=== PATIENT | male | born 1995 | race Caucasian/White ===

== ENCOUNTER 2021-07-31 02:15 | Emergency (ER) | payer OTHER ==
[2021-07-31] MEDS ORDERED: Metoclopramide HCl 10 MG/2 ML VIAL ONE (03:03)
[2021-07-31] MEDS ORDERED: diphenhydrAMINE 50 MG/ML VIAL ONE (03:03)
[2021-07-31] MEDS ORDERED: Ketorolac Tromethamine 30 MG/ML VIAL ONE (03:03)
[2021-07-31 03:11] LABS: #Eosinphils 0.1 10x3/uL (0.0-0.5); #Monocytes 0.5 10x3/uL (0.0-1.1); #Neutrophils 6.5 10x3/uL (1.5-8.4); %Basophils 0.2 % (0.0-2.0); %Eosinophils 0.6 % (0.0-6.0); %Lymphocytes 17.1 % (18.0-47.0); %Monocytes 5.6 % (0.0-10.0); %Neutrophils 76.4 % (40.0-75.0); Hemoglobin 14.9 g/dL (13.5-17.5); Mean Corpuscular HGB CONC 36.3 g/dL (32.0-36.0); Mean Corpuscular Hemoglobin 32.7 pg (27.0-33.0); Mean Corpuscular Volume 90.1 fl (81.2-95.1); Mean Platelet Volume 9.2 fl (7.4-10.4); Platelet Count 220 10x3/uL (150-450); RBC Distribution Width 10.9 % (11.5-14.5); Red Blood Cell (RBC) Count 4.55 10x6/uL (4.32-5.72); White Blood Cell (WBC) Count 8.4 10x3/uL (3.5-10.5)
[2021-07-31 03:25] LABS: ALT (SGPT) 14 U/L (8-55); AST (SGOT) 18 U/L (5-34); Albumin 3.8 g/dL (3.5-5.0); Alkaline Phosphatase 65 U/L (40-110); Anion Gap 19 mmol/L (10-20); BUN (Urea Nitrogen) 12 mg/dL (8.9-20.6); Bilirubin, Total 0.7 mg/dL (0.2-1.2); Calc. Creatinine Clearance 0 mL/min (70-130); Carbon Dioxide 19 mmol/L (22-29); Chloride 101 mmol/L (98-107); Globulin 2.5 g/dL (2.4-3.5); Glucose 350 mg/dL (70-105); Lipase 16 U/L (8-78); Potassium 3.7 mmol/L (3.5-5.1); Protein, Total 6.3 g/dL (6.0-8.3); Sodium 135 mmol/L (136-145)
[2021-07-31] MEDS ORDERED: Insulin Regular 300 UNITS/3 ML VIAL ONE (03:45)
== END 2021-07-31 08:49 | disposition home or self-care (01) ==
LOC: CSHERS 02:15
DX: E10.43 Type 1 diabetes mellitus with diabetic autonomic (poly)neuropathy (principal); K31.84 Gastroparesis; Z79.4 Long term (current) use of insulin
CPT/HCPCS: 36416; 80053; 83690; 85025; 93005; 96374; 96375; J1200; J1815; J1885; J2765

== ENCOUNTER 2022-02-28 01:02 | Emergency (ER) | payer OTHER ==
[2022-02-28] MEDS ORDERED: Ketorolac Tromethamine 30 MG/ML VIAL ONE (01:39)
[2022-02-28] MEDS ORDERED: Metoclopramide HCl 10 MG/2 ML VIAL ONE (01:39)
[2022-02-28 01:41] LABS: #Neutrophils 11.6 10x3/uL (1.5-8.4); %Basophils 0.3 % (0.0-2.0); %Eosinophils 0.1 % (0.0-6.0); %Lymphocytes 14.9 % (18.0-47.0); %Monocytes 6.7 % (0.0-10.0); %Neutrophils 77.7 % (40.0-75.0); Hemoglobin 16.1 g/dL (13.5-17.5); Mean Corpuscular HGB CONC 37.5 g/dL (32.0-36.0); Mean Corpuscular Hemoglobin 33.1 pg (27.0-33.0); Mean Corpuscular Volume 88.1 fl (81.2-95.1); Mean Platelet Volume 9.2 fl (7.4-10.4); Platelet Count 274 10x3/uL (150-450); Red Blood Cell (RBC) Count 4.87 10x6/uL (4.32-5.72); White Blood Cell (WBC) Count 14.9 10x3/uL (3.5-10.5)
[2022-02-28 01:55] LABS: ALT (SGPT) 13 U/L (8-55); AST (SGOT) 10 U/L (5-34); Albumin 4.5 g/dL (3.5-5.0); Alkaline Phosphatase 71 U/L (40-110); Anion Gap 13 mmol/L (10-20); BUN (Urea Nitrogen) 8 mg/dL (8.9-20.6); Bilirubin, Total 1.3 mg/dL (0.2-1.2); Calc. Creatinine Clearance 0 mL/min (70-130); Carbon Dioxide 23 mmol/L (22-29); Chloride 104 mmol/L (98-107); Estimated GFR 129; Globulin 2.8 g/dL (2.4-3.5); Glucose 61 mg/dL (70-105); Lipase 9 U/L (8-78); Phosphorus 1.9 mg/dL (2.3-4.7); Potassium 3.3 mmol/L (3.5-5.1); Protein, Total 7.3 g/dL (6.0-8.3); Sodium 137 mmol/L (136-145)
[2022-02-28 02:03] LABS: Magnesium 1.9 mg/dL (1.6-2.6)
== END 2022-02-28 03:18 | disposition home or self-care (01) ==
LOC: CSHERS 01:02
DX: K29.70 Gastritis, unspecified, without bleeding (principal); E10.9 Type 1 diabetes mellitus without complications
CPT/HCPCS: 36416; 80053; 82010; 83690; 83735; 84100; 85025; 96361; 96374; 96375; J1885; J2765

== ENCOUNTER 2022-03-01 11:56 | Outpatient (CLI) | payer OTHER | END 2022-03-01 11:57 | disposition home or self-care (01) | LOC: CSHULT 11:56 | PROVIDERS: ATTEND Internal Medicine Gastroenterology | DX: R11.2 Nausea with vomiting, unspecified (principal) | CPT/HCPCS: 76700 ==

== ENCOUNTER 2022-10-04 16:04 | Inpatient (IN) | payer OTHER ==
[~2022-10-04 16:04] MED LIST: Iopamidol 300 61% 100 ML VIAL FS ONE
[2022-10-04] MEDS ORDERED: Ketorolac Tromethamine 30 MG/ML VIAL ONE (16:44)
[2022-10-04] MEDS ORDERED: Dicyclomine 20 MG TAB ONE (16:46)
[2022-10-04 16:52] LABS: Actual Bicarbonate (HCO3v) 22.6 mEq/L (22-28); Base Excess -1.6 mEq/L (-2 - +2); Calcium, Ionized (venous) 1.14 mmol/L (1.16-1.32); Chloride (VBG) 98 mmol/L (98-106); Hematocrit-VBG 46 % (42.0-52.0); Hemoglobin (Hb) 15.7 g/dL (13.2-17.3); Potassium (VBG) 4.57 mmol/L (3.70-5.30); Puncture Site Other Site; RapidComm Collect By CBN; Sodium 133.5 mmol/L (133-146); pH (venous) 7.406 (7.32-7.43)
[2022-10-04 16:54] LABS: #Monocytes 0.6 10x3/uL (0.0-1.1); #Neutrophils 11.2 10x3/uL (1.5-8.4); %Basophils 0.2 % (0.0-2.0); %Eosinophils 0.1 % (0.0-6.0); %Lymphocytes 8.8 % (18.0-47.0); %Monocytes 4.5 % (0.0-10.0); %Neutrophils 86.2 % (40.0-75.0); Hemoglobin 15.5 g/dL (13.5-17.5); Mean Corpuscular HGB CONC 35.6 g/dL (32.0-36.0); Mean Corpuscular Hemoglobin 32.4 pg (27.0-33.0); Mean Corpuscular Volume 91.2 fl (81.2-95.1); Mean Platelet Volume 10.1 fl (7.4-10.4); Platelet Count 226 10x3/uL (150-450); RBC Distribution Width 11.3 % (11.5-14.5); Red Blood Cell (RBC) Count 4.78 10x6/uL (4.32-5.72)
[2022-10-04 16:57] LABS: ALT (SGPT) 11 U/L (8-55); AST (SGOT) 11 U/L (5-34); Albumin 4.4 g/dL (3.5-5.0); Alkaline Phosphatase 81 U/L (40-110); Anion Gap 16 mmol/L (10-20); BUN (Urea Nitrogen) 10 mg/dL (8.9-20.6); Bilirubin, Total 1.1 mg/dL (0.2-1.2); Calc. Creatinine Clearance 0 mL/min (70-130); Calcium 9.4 mg/dL (7.8-10.44); Carbon Dioxide 25 mmol/L (22-29); Chloride 99 mmol/L (98-107); Estimated GFR 115; Globulin 2.8 g/dL (2.4-3.5); Glucose 384 mg/dL (70-105); Lipase 9 U/L (8-78); Potassium 4.7 mmol/L (3.5-5.1); Protein, Total 7.2 g/dL (6.0-8.3); Sodium 135 mmol/L (136-145)
[2022-10-04] MEDS ORDERED: HumuLIN 70/30 (300 UNITS/3 ML VIAL) FS SCH (17:45)
[2022-10-04 18:31] LABS: Bilirubin Neg (Negative); Blood, Urine Negative (Negative); Clarity Clear (Clear); Glucose, Urine (Dipstick) >=1000 mg/dL (Negative); Ketone, Urine 150 mg/dL (Negative); Leukocyte Negative (Negative); Nitrite Negative (Negative); Protein, Urine (Dipstick) Negative (Neg-Trace); Specific Gravity, Urine 1.015 (1.005-1.030); Urobilinogen Normal mg/dL (Less than 2)
[2022-10-04 18:51] LABS: CAUTI Indications for Culture Pelvic or flank pain; RBC/HPF None Seen HPF (0-3); Squamous Epithelial None Seen HPF (0-3); WBC/HPF None Seen HPF (0-3)
[2022-10-04 18:52] LABS: Bacteria/HPF None Seen HPF (None Seen); Urine Culture Reflex No No
[2022-10-04] MEDS ORDERED: Piperacillin/Tazobactam 3.375 GM VIAL ONE (21:34)
[2022-10-04] MEDS ORDERED: Ondansetron PF 4 MG/2 ML Vial ONE (21:46)
[2022-10-04] MEDS ORDERED: Morphine 4 MG/ML VIAL ONE (21:46)
[2022-10-04] MEDS ORDERED: Acetaminophen 650 MG Suppository PR PRN (22:26)
[2022-10-04] MEDS ORDERED: Glucagon 1 MG/ML KIT IM PRN ×2 (22:26→22:32)
[2022-10-04] MEDS ORDERED: Ondansetron ODT 4 MG TAB PO PRN (22:26)
[2022-10-04] MEDS ORDERED: Dextrose 50% Abboject 50 ML SYRINGE SLOW IVP PRN ×2 (22:26→22:32)
[2022-10-04] MEDS ORDERED: Dextrose 5% in Water 1,000 ML IV PRN ×2 (22:26→22:32)
[2022-10-04] MEDS ORDERED: HumaLOG 300 UNITS/3 ML VIAL SC PRN (22:26)
[2022-10-04] MEDS ORDERED: Acetaminophen 325 MG TAB PO PRN (22:26)
[2022-10-05] MEDS ORDERED: Lantus 1000 UNITS/10 ML VIAL SC SCH ×4 (00:30→21:00)
[2022-10-05] MEDS: Sodium Chloride 0.9% 1,000 ML IV SCH ×3 (00:49→18:16)
[2022-10-05] MEDS: Ondansetron PF 4 MG/2 ML Vial IVP PRN ×2 (00:50→05:56)
[2022-10-05] MEDS ORDERED: Glucagon 1 MG/ML KIT IM PRN (01:51)
[2022-10-05] MEDS ORDERED: Dextrose 50% Abboject 50 ML SYRINGE SLOW IVP PRN (01:51)
[2022-10-05] MEDS ORDERED: Dextrose 5% in Water 1,000 ML IV PRN (01:51)
[2022-10-05] MEDS: Piperacillin/Tazobactam 3.375 GM in Sodium Chloride 0.9% 100 ML IVPB SCH ×3 (02:08→19:57)
[2022-10-05] MEDS ORDERED: Morphine 4 MG/ML VIAL SLOW IVP PRN (02:25)
[2022-10-05] MEDS ORDERED: Piperacillin/Tazobactam 3.375 GM in Sodium Chloride 0.9% 100 ML IVPB SCH (05:00)
[2022-10-05 06:31] LABS: Anion Gap 19 mmol/L (10-20); BUN (Urea Nitrogen) 13 mg/dL (8.9-20.6); Calc. Creatinine Clearance 114 mL/min (70-130); Calcium 8.7 mg/dL (7.8-10.44); Carbon Dioxide 20 mmol/L (22-29); Chloride 102 mmol/L (98-107); Estimated GFR 115; Glucose 313 mg/dL (70-105); Potassium 4.2 mmol/L (3.5-5.1); Sodium 137 mmol/L (136-145)
[2022-10-05 06:51] LABS: #Monocytes 0.6 10x3/uL (0.0-1.1); %Basophils 0.3 % (0.0-2.0); %Eosinophils 0.1 % (0.0-6.0); %Lymphocytes 10.5 % (18.0-47.0); %Monocytes 5.2 % (0.0-10.0); %Neutrophils 83.6 % (40.0-75.0); Hemoglobin 14.2 g/dL (13.5-17.5); Mean Corpuscular HGB CONC 34.7 g/dL (32.0-36.0); Mean Corpuscular Volume 92.1 fl (81.2-95.1); Mean Platelet Volume 10.4 fl (7.4-10.4); Platelet Count 202 10x3/uL (150-450); RBC Distribution Width 11.2 % (11.5-14.5); Red Blood Cell (RBC) Count 4.44 10x6/uL (4.32-5.72)
[2022-10-05] MEDS ORDERED: INSULIN DETEMIR 100 UNIT/ML SQ SCH (09:00)
[2022-10-05] MEDS ORDERED: Acetaminophen 500 MG TAB PO PRN (14:55)
[2022-10-05] MEDS: HumaLOG 300 UNITS/3 ML VIAL SC PRN (15:02)
[2022-10-05] MEDS ORDERED: EPINEPHrine 1 MG/ML AMP ONE (15:03)
[2022-10-05] MEDS ORDERED: Bupivacaine PF 0.5% 30 ML VIAL ONE (15:03)
[2022-10-05] MEDS ORDERED: Rocuronium Bromide 10 MG/ML (10ML VIAL) ONE (16:34)
[2022-10-05] MEDS ORDERED: Famotidine/PF 20 mg/2ml Vial ONE (16:34)
[2022-10-05] MEDS ORDERED: Dexamethasone 4 mg/ml Vial ONE (16:34)
[2022-10-05] MEDS ORDERED: Ondansetron PF 4 MG/2 ML Vial ONE (16:34)
[2022-10-05] MEDS ORDERED: Succinylcholine 200 MG/10 ml SYRINGE FS ONE (16:35)
[2022-10-05] MEDS ORDERED: Lidocaine 2% PF 5 ML VIAL ONE (16:35)
[2022-10-05] MEDS ORDERED: fentaNYL 50 mcg/mL 1 mL Vial ONE (16:39)
[2022-10-05] MEDS ORDERED: SUGAMMADEX SODIUM 200 MG/2 ML VIAL ONE (16:43)
[2022-10-05] MEDS: Metoclopramide HCl 10 MG TAB PO SCH (17:22)
[2022-10-05] MEDS ORDERED: Metoclopramide HCl 10 MG/2 ML VIAL ONE (17:35)
[2022-10-05] MEDS ORDERED: CEFAZOLIN 1 GM VIAL ONE (17:45)
[2022-10-05] MEDS ORDERED: Meperidine HCl/PF 25 MG/ML VIAL ONE (18:11)
[2022-10-05] MEDS ORDERED: traMADol HCl 50 MG TAB PO PRN (18:14)
[2022-10-05] MEDS ORDERED: Ibuprofen 400 MG TAB PO PRN (18:14)
[2022-10-05] MEDS ORDERED: traMADol HCl 50 MG TAB PO SCH (18:30)
[2022-10-05] MEDS ORDERED: Acetaminophen 500 MG TAB PO SCH (18:30)
[2022-10-05] MEDS ORDERED: Ketorolac Tromethamine 30 MG/ML VIAL ONE (18:48)
[2022-10-05] MEDS: Amoxicillin/Potassium Clav 875 MG TAB PO SCH (19:59)
[2022-10-06] MEDS: Acetaminophen 500 MG TAB PO SCH ×3 (00:39→11:58)
[2022-10-06] MEDS: traMADol HCl 50 MG TAB PO SCH ×3 (00:40→11:59)
[2022-10-06] MEDS: Piperacillin/Tazobactam 3.375 GM in Sodium Chloride 0.9% 100 ML IVPB SCH ×2 (02:24→12:00)
[2022-10-06] MEDS: Sodium Chloride 0.9% 1,000 ML IV SCH ×2 (02:24→12:01)
[2022-10-06] MEDS: Metoclopramide HCl 10 MG TAB PO SCH (08:43)
[2022-10-06] MEDS: Amoxicillin/Potassium Clav 875 MG TAB PO SCH (08:43)
[2022-10-06 08:57] LABS: #Monocytes 0.5 10x3/uL (0.0-1.1); #Neutrophils 9.6 10x3/uL (1.5-8.4); %Basophils 0.1 % (0.0-2.0); %Lymphocytes 5.9 % (18.0-47.0); %Monocytes 4.8 % (0.0-10.0); %Neutrophils 88.7 % (40.0-75.0); Hemoglobin 13.6 g/dL (13.5-17.5); Mean Corpuscular HGB CONC 34.4 g/dL (32.0-36.0); Mean Corpuscular Hemoglobin 31.9 pg (27.0-33.0); Mean Corpuscular Volume 92.7 fl (81.2-95.1); Mean Platelet Volume 10.2 fl (7.4-10.4); Platelet Count 206 10x3/uL (150-450); RBC Distribution Width 11.4 % (11.5-14.5); Red Blood Cell (RBC) Count 4.26 10x6/uL (4.32-5.72); White Blood Cell (WBC) Count 10.9 10x3/uL (3.5-10.5)
[2022-10-06 09:10] LABS: Anion Gap 17 mmol/L (10-20); BUN (Urea Nitrogen) 11 mg/dL (8.9-20.6); Calc. Creatinine Clearance 101 mL/min (70-130); Calcium 8.9 mg/dL (7.8-10.44); Carbon Dioxide 21 mmol/L (22-29); Chloride 104 mmol/L (98-107); Estimated GFR 100; Glucose 229 mg/dL (70-105); Potassium 4.5 mmol/L (3.5-5.1); Sodium 137 mmol/L (136-145)
[2022-10-06 10:21] VITALS: BP 108/66; TEMP 98.7
[2022-10-06] MEDS: HumaLOG 300 UNITS/3 ML VIAL SC PRN (12:05)
[2022-10-06] MEDS ORDERED: Atorvastatin Calcium 40 MG TAB PO SCH (21:00)
== END 2022-10-06 13:50 | disposition home or self-care (01) | DRG 339 ==
LOC: CSHERS 16:04 → CSHTELE 10-05 00:19
PROVIDERS: ADMIT Student in an Organized Health Care Education/Training Program; ATTEND Surgery
PROC: 0DTJ4ZZ Resection of Appendix, Percutaneous Endoscopic Approach (ICD-10-PCS; principal; 2022-10-05)
DX: K35.32 Acute appendicitis with perforation, localized peritonitis, and gangrene, without abscess (principal); E87.1 Hypo-osmolality and hyponatremia; K90.0 Celiac disease; E78.5 Hyperlipidemia, unspecified; K31.84 Gastroparesis; E10.43 Type 1 diabetes mellitus with diabetic autonomic (poly)neuropathy; Z88.8 Allergy status to other drugs, medicaments and biological substances; Z79.899 Other long term (current) drug therapy; Z79.4 Long term (current) use of insulin
CPT/HCPCS: 36415; 36416; 74177; 80048; 80053; 81001; 82010; 82805; 83690; 85025; 88304; J0171; J0690; J1100; J1650; J1815; J1885; J2001; J2175; J2270; J2405; J2543; J2765; J3010; J3490; J7050; Q9967; S0020; S0028

== ENCOUNTER 2022-10-09 09:33 | Emergency (ER) | payer OTHER ==
[2022-10-09] MEDS ORDERED: Iopamidol 300 61% 100 ML VIAL FS ONE (10:24)
[2022-10-09 10:44] LABS: Bilirubin 1+ (Negative); Blood, Urine 10 (Negative); Clarity Slightly Cloudy (Clear); Glucose, Urine (Dipstick) >=1000 mg/dL (Negative); Ketone, Urine 150 mg/dL (Negative); Leukocyte Negative (Negative); Nitrite Negative (Negative); Protein, Urine (Dipstick) 30 mg/dl (Neg-Trace); Specific Gravity, Urine 1.025 (1.005-1.030)
[2022-10-09 10:44] LABS: #Eosinphils 0.1 10x3/uL (0.0-0.5); #Monocytes 0.8 10x3/uL (0.0-1.1); #Neutrophils 10.4 10x3/uL (1.5-8.4); %Basophils 0.2 % (0.0-2.0); %Eosinophils 0.9 % (0.0-6.0); %Lymphocytes 7.2 % (18.0-47.0); %Monocytes 6.1 % (0.0-10.0); %Neutrophils 85.4 % (40.0-75.0); Hematocrit 41.7 % (38.8-50.0); Hemoglobin 14.7 g/dL (13.5-17.5); Mean Corpuscular HGB CONC 35.3 g/dL (32.0-36.0); Mean Corpuscular Hemoglobin 31.5 pg (27.0-33.0); Mean Corpuscular Volume 89.3 fl (81.2-95.1); Mean Platelet Volume 9.3 fl (7.4-10.4); Platelet Count 290 10x3/uL (150-450); Red Blood Cell (RBC) Count 4.67 10x6/uL (4.32-5.72); White Blood Cell (WBC) Count 12.2 10x3/uL (3.5-10.5)
[2022-10-09] MEDS ORDERED: Ondansetron PF 4 MG/2 ML Vial ONE (10:45)
[2022-10-09] MEDS ORDERED: Ketorolac Tromethamine 30 MG/ML VIAL ONE (10:46)
[2022-10-09 11:00] LABS: ALT (SGPT) 28 U/L (8-55); AST (SGOT) 13 U/L (5-34); Albumin 3.8 g/dL (3.5-5.0); Alkaline Phosphatase 123 U/L (40-110); Anion Gap 20 mmol/L (10-20); BUN (Urea Nitrogen) 8 mg/dL (8.9-20.6); Bilirubin, Total 0.6 mg/dL (0.2-1.2); Calc. Creatinine Clearance 0 mL/min (70-130); Calcium 9.8 mg/dL (7.8-10.44); Carbon Dioxide 26 mmol/L (22-29); Chloride 96 mmol/L (98-107); Estimated GFR 126; Globulin 3.4 g/dL (2.4-3.5); Glucose 233 mg/dL (70-105); Lipase 4 U/L (8-78); Potassium 3.4 mmol/L (3.5-5.1); Protein, Total 7.2 g/dL (6.0-8.3); Sodium 139 mmol/L (136-145)
[2022-10-09 11:07] LABS: CAUTI Indications for Culture Pelvic or flank pain; RBC/HPF 0-3 HPF (0-3); Squamous Epithelial 0-3 HPF (0-3)
[2022-10-09 11:08] LABS: Bacteria/HPF Rare-Few HPF (None Seen); Mucous/LPF 4+ LPF (<2+)
[2022-10-09 11:09] LABS: Urine Culture Reflex No No
[2022-10-09] MEDS ORDERED: Morphine 4 MG/ML VIAL ONE (11:42)
== END 2022-10-09 13:15 | disposition home or self-care (01) ==
LOC: CSHERS 09:33
DX: G89.18 Other acute postprocedural pain (principal); E86.0 Dehydration; R11.2 Nausea with vomiting, unspecified; E10.9 Type 1 diabetes mellitus without complications
CPT/HCPCS: 74177; 80053; 81001; 83605; 83690; 85025; 96374; 96375; J1885; J2270; J2405; Q9967

== ENCOUNTER 2023-09-07 16:22 | Emergency (ER) | payer OTHER | END 2023-09-07 21:51 | disposition home or self-care (01) | LOC: CSHERS 16:22 | DX: R11.2 Nausea with vomiting, unspecified (principal); F12.10 Cannabis abuse, uncomplicated; E10.9 Type 1 diabetes mellitus without complications | CPT/HCPCS: 36415; 36416; 80053; 81001; 82010; 82805; 83605; 83690; 85025; 96374; 96375; 96376; J1630; J2405; J2765 ==

== ENCOUNTER 2023-09-09 03:45 | Emergency (ER) | payer OTHER ==
[2023-09-09] MEDS ORDERED: Haloperidol Lactate 5 MG/ML VIAL ONE (04:02)
== END 2023-09-09 04:58 | disposition home or self-care (01) ==
LOC: CSHERS 03:45
DX: R11.2 Nausea with vomiting, unspecified (principal)
CPT/HCPCS: 96372; 99283; J1630

== ENCOUNTER 2023-12-08 13:14 | Emergency (ER) | payer OTHER ==
[2023-12-08 13:57] LABS: Actual Bicarbonate (HCO3v) 11.1 mEq/L (22-28); Analyzer IN Cardio CS ER; Base Excess -9.5 mEq/L (-2 - +2); Calcium, Ionized (venous) 1.14 mmol/L (1.16-1.32); Chloride (VBG) 101 mmol/L (98-106); Critical Notified Whom: bufau; Hematocrit-VBG 51 % (42.0-52.0); Hemoglobin (Hb) 17.5 g/dL (13.2-17.3); Potassium (VBG) 4.49 mmol/L (3.70-5.30); Puncture Site Other Site; RapidComm Collect By LAB; Sodium 141 mmol/L (133-146); pH (venous) 7.436 (7.32-7.43)
[2023-12-08] MEDS ORDERED: Pantoprazole 40 MG VIAL ONE (13:58)
[2023-12-08] MEDS ORDERED: Ondansetron PF 4 MG/2 ML Vial ONE (13:59)
[2023-12-08 14:02] LABS: #Basophils 0.01 10x3/uL (0.0-0.2); #Monocytes 0.26 10x3/uL (0.0-1.1); #Neutrophils 7.36 10x3/uL (1.5-8.4); %Basophils 0.1 % (0.0-2.0); %Lymphocytes 11.6 % (18.0-47.0); %Neutrophils 85.1 % (40.0-75.0); Hematocrit 46.2 % (38.8-50.0); Hemoglobin 16.5 g/dL (13.5-17.5); Mean Corpuscular HGB CONC 35.7 g/dL (32.0-36.0); Mean Corpuscular Hemoglobin 33.3 pg (27.0-33.0); Mean Corpuscular Volume 93.3 fL (81.2-95.1); Mean Platelet Volume 9.8 fL (7.4-10.4); Platelet Count 257 10x3/uL (150-450); RBC Distribution Width 11.4 % (11.5-14.5); Red Blood Cell (RBC) Count 4.95 10x6/uL (4.32-5.72); White Blood Cell (WBC) Count 8.7 10x3/uL (3.5-10.5)
[2023-12-08 14:18] LABS: ALT (SGPT) 59 U/L (8-55); AST (SGOT) 78 U/L (5-34); Acetaminophen Less than 10 mcg/mL (Less than 10); Albumin 4.3 g/dL (3.5-5.0); Alcohol Less than 10.0 mg/dL (Less than 10); Alkaline Phosphatase 97 U/L (40-110); Anion Gap 31 mmol/L (10-20); BUN (Urea Nitrogen) 10 mg/dL (8.9-20.6); Bilirubin, Total 0.6 mg/dL (0.2-1.2); Calc. Creatinine Clearance 0 mL/min (70-130); Calcium 9.6 mg/dL (7.8-10.44); Chloride 103 mmol/L (98-107); Estimated GFR 81; Globulin 2.7 g/dL (2.4-3.5); Glucose 307 mg/dL (70-105); Lipase 10 U/L (8-78); Magnesium 1.8 mg/dL (1.6-2.6); Potassium 4.6 mmol/L (3.5-5.1); Salicylate Less than 8.0 mg/dL (Less than 8.0); Sodium 138 mmol/L (136-145)
[2023-12-08 14:20] LABS: CK (CPK) 42 U/L (30-200); Phosphorus 2.6 mg/dL (2.3-4.7)
[2023-12-08 14:23] LABS: Troponin I Less than 0.010 ng/mL (< 0.028)
[2023-12-08 14:26] LABS: Carbon Dioxide 9 mmol/L (22-29)
[2023-12-08 14:41] LABS: Bilirubin Neg (Negative); Blood, Urine Negative (Negative); Clarity Clear (Clear); Glucose, Urine (Dipstick) >=1000 mg/dL (Negative); Ketone, Urine 150 mg/dL (Negative); Leukocyte Negative (Negative); Nitrite Negative (Negative); Protein, Urine (Dipstick) 30 mg/dl (Neg-Trace); Urobilinogen Normal mg/dL (Less than 2)
[2023-12-08 14:51] LABS: Amphetamine Not Detected (NotDetected); Barbiturates Screen Not Detected (NotDetected); Benzodiazepine Screen Not Detected (NotDetected); Cocaine Metabolite Screen Not Detected (NotDetected); Methadone Not Detected (NotDetected); Methamphetamine Not Detected (NotDetected); Opiate Screen Not Detected (NotDetected); Oxycodone Screen Not Detected (NotDetected); Phencyclidine (PCP) Not Detected (NotDetected); THC/Cannabinoid Screen Detected (NotDetected); Tricyclic Screen Not Detected (NotDetected)
[2023-12-08] MEDS ORDERED: Haloperidol Lactate 5 MG/ML VIAL ONE (14:53)
[2023-12-08 15:16] LABS: Bacteria/HPF 1+ HPF (None Seen); CAUTI Indications for Culture Pelvic or flank pain; RBC/HPF 0-3 HPF (0-3); Squamous Epithelial 0-3 HPF (0-3); WBC/HPF 0-3 HPF (0-3)
[2023-12-08 15:17] LABS: Mucous/LPF 1+ LPF (<2+)
[2023-12-08 15:18] LABS: Urine Culture Reflex No No
== END 2023-12-08 16:08 | disposition home or self-care (01) ==
LOC: CSHERS 13:14
DX: I13.0 Hypertensive heart and chronic kidney disease with heart failure and stage 1 through stage 4 chronic kidney disease, or unspecified chronic kidney disease (principal); I50.9 Heart failure, unspecified; N18.9 Chronic kidney disease, unspecified; E11.22 Type 2 diabetes mellitus with diabetic chronic kidney disease; D64.9 Anemia, unspecified; I25.2 Old myocardial infarction; Z87.891 Personal history of nicotine dependence
CPT/HCPCS: 71045; 80053; 80306; 80307; 81001; 82010; 82550; 82805; 83690; 83735; 84100; 84484; 85025; 93005; 96374; 96375; J1630; J2405; J2470